=== PATIENT | male | born 1965 | race Caucasian/White ===

== ENCOUNTER 2023-02-01 16:46 | Inpatient (IN) | payer BC ==
[2023-02-01 23:06] VITALS: BMI 49.0
[2023-02-01] MEDS ORDERED: Acetaminophen 650 MG Suppository PR PRN (23:53)
[2023-02-01] MEDS ORDERED: Bisacodyl 5 MG TAB PO PRN (23:53)
[2023-02-01] MEDS ORDERED: Ondansetron ODT 4 MG TAB PO PRN (23:53)
[2023-02-01] MEDS ORDERED: Ondansetron PF 4 MG/2 ML Vial IVP PRN (23:53)
[2023-02-01] MEDS ORDERED: Senokot S 8.6-50 MG TAB PO PRN (23:53)
[2023-02-02] MEDS: Doxepin HCl 10 MG CAP PO PRN ×2 (00:50→21:31)
[2023-02-02] MEDS ORDERED: Doxepin HCl 25 MG CAP PO SCH (01:00)
[2023-02-02] MEDS ORDERED: Acetaminophen 500 MG TAB PO SCH (01:00)
[2023-02-02] MEDS ORDERED: Labetalol HCl 100 MG/20 ML VIAL SLOW IVP PRN (01:05)
[2023-02-02] MEDS ORDERED: Calcium Carbonate 500 MG ChewTAB PO PRN (01:05)
[2023-02-02] MEDS ORDERED: Sodium Chloride 0.65% Nasal 44 ML BOT EA NARE PRN (01:05)
[2023-02-02] MEDS ORDERED: Lorazepam 1 MG TAB PO PRN (01:05)
[2023-02-02] MEDS ORDERED: Loratadine 10 MG TAB PO PRN (01:05)
[2023-02-02] MEDS ORDERED: diphenhydrAMINE 25 MG CAP PO PRN (01:05)
[2023-02-02] MEDS ORDERED: Artificial Tear Sol 15 ML BOT EA EYE PRN (01:05)
[2023-02-02] MEDS ORDERED: hydrALAZINE 20 MG/ML VIAL SLOW IVP PRN (01:05)
[2023-02-02] MEDS ORDERED: Benzocaine/Menthol 1 LOZ LOZ PO PRN (01:05)
[2023-02-02] MEDS ORDERED: Moisturizing Cream (Eucerin) 113 GM JAR TOP PRN (01:05)
[2023-02-02] MEDS ORDERED: Lactated Ringer's 1,000 ML IV SCH (01:15)
[2023-02-02] MEDS ORDERED: Electrolyte Replacement Protocol 1 EACH FS PRN (01:15)
[2023-02-02] MEDS: Oseltamivir 75 MG CAP PO SCH ×2 (01:55→13:27)
[2023-02-02] MEDS: Thiamine HCl 200 MG/2 ML VIAL SLOW IVP SCH (01:55)
[2023-02-02] MEDS: Benzonatate 100 MG CAP PO PRN (01:56)
[2023-02-02 05:05] LABS: Anion Gap 14 mmol/L (10-20); BUN (Urea Nitrogen) 19 mg/dL (8.4-25.7); Calc. Creatinine Clearance 118 mL/min (70-130); Calcium 8.5 mg/dL (7.8-10.44); Carbon Dioxide 27 mmol/L (22-29); Chloride 100 mmol/L (98-107); Estimated GFR 60; Glucose 85 mg/dL (70-105); Magnesium 2.4 mg/dL (1.6-2.6); Potassium 4.2 mmol/L (3.5-5.1); Sodium 137 mmol/L (136-145)
[2023-02-02 05:07] LABS: Hematocrit 41.4 % (38.8-50.0); Mean Corpuscular HGB CONC 33.8 g/dL (32.0-36.0); Mean Corpuscular Hemoglobin 32.8 pg (27.0-33.0); Mean Platelet Volume 10.5 fl (7.4-10.4); Platelet Count 315 10x3/uL (150-450); Red Blood Cell (RBC) Count 4.27 10x6/uL (4.32-5.72); White Blood Cell (WBC) Count 5.5 10x3/uL (3.5-10.5)
[2023-02-02 05:09] LABS: MDiff Complete? YES
[2023-02-02 05:17] LABS: Phosphorus 4.2 mg/dL (2.3-4.7)
[2023-02-02 06:55] LABS: Band 5 % (5-11); Lymphocytes 24 % (21-51); Monocytes 15 % (0-10); Neutrophil 56 % (42-75)
[2023-02-02 06:57] LABS: Platelet Adequacy Comment Platelets Normal; Poikilocytosis SLIGHT = 6-15 cells (100X) (0-5/hpf); Target Cells SLIGHT = 2-5 cells (100X) (0-1/hpf)
[2023-02-02] MEDS: Folic Acid 1 MG TAB PO SCH (08:33)
[2023-02-02] MEDS: PARoxetine 20 MG TAB PO SCH (08:33)
[2023-02-02] MEDS: Lisinopril 5 MG TAB PO SCH (08:33)
[2023-02-02] MEDS: Nicotine 7 MG PATCH TD SCH (08:33)
[2023-02-02] MEDS: Famotidine 20 MG TAB PO SCH ×2 (08:33→21:08)
[2023-02-02] MEDS: Tamsulosin HCl 0.4 MG CAP PO SCH (08:34)
[2023-02-02] MEDS: Multivit, Therapeutic 1 TAB PO SCH (08:34)
[2023-02-02] MEDS: Ipratropium/Albuterol 3 ML NEB NEB PRN ×2 (09:00→17:15)
[2023-02-02] MEDS: GUAIFENESIN SF SOLN 200 MG/10 ML UDCUP PO PRN ×2 (09:15→21:10)
[2023-02-02] MEDS: Amlodipine 10 MG TAB PO SCH (11:00)
[2023-02-02] MEDS: Acetaminophen 325 MG TAB PO PRN ×2 (11:01→21:09)
[2023-02-02] MEDS: Famotidine/PF 20 mg/2ml Vial SLOW IVP SCH ×2 (11:03→21:09)
[2023-02-02] MEDS ORDERED: Metoprolol Tartrate 25 MG TAB PO SCH (14:00)
[2023-02-02] MEDS: Furosemide 20 MG (2 mL) VIAL SLOW IVP SCH (14:31)
[2023-02-02] MEDS ORDERED: Apixaban 5 MG TAB PO SCH (17:30)
[2023-02-02] MEDS: Metoprolol Tartrate 25 MG TAB PO SCH (21:09)
[2023-02-03] MEDS ORDERED: Lorazepam 1 MG TAB PO PRN (01:06)
[2023-02-03] MEDS: Oseltamivir 75 MG CAP PO SCH ×2 (02:15→13:16)
[2023-02-03] MEDS: Thiamine HCl 200 MG/2 ML VIAL SLOW IVP SCH (02:15)
[2023-02-03] MEDS: Furosemide 20 MG (2 mL) VIAL SLOW IVP SCH (06:26)
[2023-02-03] MEDS: Nicotine 7 MG PATCH TD SCH (10:13)
[2023-02-03] MEDS: Apixaban 5 MG TAB PO SCH ×2 (10:13→20:20)
[2023-02-03] MEDS: Amlodipine 10 MG TAB PO SCH (10:14)
[2023-02-03] MEDS: Lisinopril 5 MG TAB PO SCH (10:14)
[2023-02-03] MEDS: Multivit, Therapeutic 1 TAB PO SCH (10:14)
[2023-02-03] MEDS: Famotidine 20 MG TAB PO SCH ×2 (10:14→20:19)
[2023-02-03] MEDS: Tamsulosin HCl 0.4 MG CAP PO SCH (10:16)
[2023-02-03] MEDS: PARoxetine 20 MG TAB PO SCH (10:16)
[2023-02-03] MEDS: Folic Acid 1 MG TAB PO SCH (10:17)
[2023-02-03] MEDS: Famotidine/PF 20 mg/2ml Vial SLOW IVP SCH ×2 (10:17→20:19)
[2023-02-03] MEDS: Metoprolol Tartrate 25 MG TAB PO SCH (11:13)
[2023-02-03] MEDS ORDERED: Flecainide 50 MG TAB PO SCH (12:00)
[2023-02-03] MEDS: Ipratropium/Albuterol 3 ML NEB NEB PRN (15:05)
[2023-02-03] MEDS: Acetaminophen 325 MG TAB PO PRN ×2 (17:22→21:34)
[2023-02-03] MEDS ORDERED: Ibuprofen 200 MG TAB PO SCH (20:00)
[2023-02-03] MEDS: Doxepin HCl 10 MG CAP PO PRN (20:19)
[2023-02-03] MEDS: Flecainide 50 MG TAB PO SCH (20:19)
[2023-02-03] MEDS: Benzonatate 100 MG CAP PO PRN (21:34)
[2023-02-04] MEDS ORDERED: Lorazepam 1 MG TAB PO PRN (01:06)
[2023-02-04] MEDS: Thiamine HCl 200 MG/2 ML VIAL SLOW IVP SCH (01:16)
[2023-02-04] MEDS: Oseltamivir 75 MG CAP PO SCH ×2 (01:16→13:45)
[2023-02-04] MEDS: Acetaminophen 325 MG TAB PO PRN ×2 (10:18→16:51)
[2023-02-04] MEDS: Benzonatate 100 MG CAP PO PRN (10:19)
[2023-02-04] MEDS: Multivit, Therapeutic 1 TAB PO SCH (10:19)
[2023-02-04] MEDS: Flecainide 50 MG TAB PO SCH ×2 (10:19→21:05)
[2023-02-04] MEDS: Lisinopril 5 MG TAB PO SCH (10:19)
[2023-02-04] MEDS: Apixaban 5 MG TAB PO SCH ×2 (10:19→21:05)
[2023-02-04] MEDS: Folic Acid 1 MG TAB PO SCH (10:19)
[2023-02-04] MEDS: Tamsulosin HCl 0.4 MG CAP PO SCH (10:20)
[2023-02-04] MEDS: Famotidine 20 MG TAB PO SCH ×2 (10:20→21:05)
[2023-02-04] MEDS: Amlodipine 10 MG TAB PO SCH (10:20)
[2023-02-04] MEDS: PARoxetine 20 MG TAB PO SCH (10:20)
[2023-02-04] MEDS: Famotidine/PF 20 mg/2ml Vial SLOW IVP SCH ×3 (10:21→21:06)
[2023-02-04] MEDS: Nicotine 7 MG PATCH TD SCH (10:21)
[2023-02-04] MEDS ORDERED: methylPREDNISolone Sod Succ 40 MG VIAL IVP SCH (12:30)
[2023-02-04] MEDS: Ipratropium/Albuterol 3 ML NEB NEB SCH ×2 (13:50→19:00)
[2023-02-04] MEDS: cefTRIAXone\\ROCEPHIN 1 GM in Sodium Chloride 0.9% 100 ML IVPB SCH (16:52)
[2023-02-04 17:02] LABS: Hematocrit 46.4 % (38.8-50.0); Hemoglobin 16.1 g/dL (13.5-17.5); Mean Corpuscular HGB CONC 34.7 g/dL (32.0-36.0); Mean Corpuscular Hemoglobin 33.2 pg (27.0-33.0); Mean Corpuscular Volume 95.7 fl (81.2-95.1); Mean Platelet Volume 10.6 fl (7.4-10.4); Platelet Count 299 10x3/uL (150-450); RBC Distribution Width 14.6 % (11.5-14.5); Red Blood Cell (RBC) Count 4.85 10x6/uL (4.32-5.72); White Blood Cell (WBC) Count 18.3 10x3/uL (3.5-10.5)
[2023-02-04] MEDS: Azithromycin 500 MG in Sodium Chloride 0.9% 250 ML 250 ML IVPB SCH (17:06)
[2023-02-04 17:12] LABS: Anion Gap 15 mmol/L (10-20); BUN (Urea Nitrogen) 21 mg/dL (8.4-25.7); Calc. Creatinine Clearance 114 mL/min (70-130); Calcium 8.9 mg/dL (7.8-10.44); Carbon Dioxide 25 mmol/L (22-29); Chloride 96 mmol/L (98-107); Estimated GFR 58; Glucose 137 mg/dL (70-105); Magnesium 1.8 mg/dL (1.6-2.6); Potassium 4.3 mmol/L (3.5-5.1); Sodium 132 mmol/L (136-145)
[2023-02-04] MEDS ORDERED: Magnesium 2 GM/50 ML(in water) 2 GM in Premix 1 BAG IVPB SCH (17:15)
[2023-02-04 17:29] LABS: Band 32 % (5-11); Lymphocytes 1 % (21-51); Monocytes 4 % (0-10)
[2023-02-04 17:33] LABS: Neutrophil 63 % (42-75); RBC Morph Comment Within Normal Limits
[2023-02-04 17:34] LABS: Dohle Bodies SLIGHT; Platelet Adequacy Comment Appears Adequate; Vacuoles SLIGHT
[2023-02-04 17:35] LABS: MDiff Complete? YES
[2023-02-04] MEDS: Doxepin HCl 10 MG CAP PO PRN (21:05)
[2023-02-05] MEDS: Ipratropium/Albuterol 3 ML NEB NEB SCH ×4 (00:07→19:49)
[2023-02-05] MEDS: Oseltamivir 75 MG CAP PO SCH ×2 (00:08→13:19)
[2023-02-05] MEDS: Thiamine 100 MG TAB PO SCH (00:30)
[2023-02-05] MEDS ORDERED: Lorazepam 0.5 MG TAB PO PRN (01:06)
[2023-02-05 05:22] LABS: #Monocytes 1.4 10x3/uL (0.0-1.1); #Neutrophils 19.8 10x3/uL (1.5-8.4); %Basophils 0.2 % (0.0-2.0); %Eosinophils 0.1 % (0.0-6.0); %Monocytes 6.2 % (0.0-10.0); Hemoglobin 15.5 g/dL (13.5-17.5); Mean Corpuscular HGB CONC 33.7 g/dL (32.0-36.0); Mean Corpuscular Hemoglobin 32.6 pg (27.0-33.0); Mean Corpuscular Volume 96.6 fl (81.2-95.1); Mean Platelet Volume 10.7 fl (7.4-10.4); Platelet Count 299 10x3/uL (150-450); RBC Distribution Width 14.6 % (11.5-14.5); Red Blood Cell (RBC) Count 4.76 10x6/uL (4.32-5.72)
[2023-02-05 05:44] LABS: Anion Gap 16 mmol/L (10-20); BUN (Urea Nitrogen) 26 mg/dL (8.4-25.7); Calc. Creatinine Clearance 97 mL/min (70-130); Calcium 9.1 mg/dL (7.8-10.44); Carbon Dioxide 25 mmol/L (22-29); Chloride 99 mmol/L (98-107); Estimated GFR 48; Glucose 161 mg/dL (70-105); Magnesium 2.9 mg/dL (1.6-2.6); Potassium 4.7 mmol/L (3.5-5.1); Sodium 135 mmol/L (136-145)
[2023-02-05] MEDS: Apixaban 5 MG TAB PO SCH ×2 (09:56→20:48)
[2023-02-05] MEDS: Flecainide 50 MG TAB PO SCH ×2 (09:56→20:48)
[2023-02-05] MEDS: PARoxetine 20 MG TAB PO SCH (09:56)
[2023-02-05] MEDS: Multivit, Therapeutic 1 TAB PO SCH (09:56)
[2023-02-05] MEDS: Folic Acid 1 MG TAB PO SCH (09:56)
[2023-02-05] MEDS: Lisinopril 5 MG TAB PO SCH (09:56)
[2023-02-05] MEDS: Tamsulosin HCl 0.4 MG CAP PO SCH (09:56)
[2023-02-05] MEDS: Famotidine 20 MG TAB PO SCH ×2 (09:57→20:48)
[2023-02-05] MEDS: methylPREDNISolone Sod Succ 40 MG VIAL IVP SCH (09:57)
[2023-02-05] MEDS: Famotidine/PF 20 mg/2ml Vial SLOW IVP SCH (09:57)
[2023-02-05] MEDS: Nicotine 7 MG PATCH TD SCH (10:37)
[2023-02-05] MEDS ORDERED: Famotidine/PF 20 mg/2ml Vial SLOW IVP PRN (16:15)
[2023-02-05] MEDS: Azithromycin 500 MG in Sodium Chloride 0.9% 250 ML 250 ML IVPB SCH (17:40)
[2023-02-05] MEDS: cefTRIAXone\\ROCEPHIN 1 GM in Sodium Chloride 0.9% 100 ML IVPB SCH (17:40)
[2023-02-05] MEDS: Acetaminophen 325 MG TAB PO PRN (20:48)
[2023-02-05] MEDS: GUAIFENESIN SF SOLN 200 MG/10 ML UDCUP PO PRN (20:48)
[2023-02-05] MEDS: Doxepin HCl 10 MG CAP PO PRN (20:48)
[2023-02-06] MEDS: Ipratropium/Albuterol 3 ML NEB NEB SCH ×2 (00:02→07:48)
[2023-02-06] MEDS: Thiamine 100 MG TAB PO SCH (00:30)
[2023-02-06] MEDS: Oseltamivir 75 MG CAP PO SCH (00:31)
[2023-02-06 05:51] LABS: #Monocytes 1.2 10x3/uL (0.0-1.1); #Neutrophils 21.1 10x3/uL (1.5-8.4); %Basophils 0.1 % (0.0-2.0); %Eosinophils 0.2 % (0.0-6.0); %Monocytes 5.1 % (0.0-10.0); %Neutrophils 91.1 % (40.0-75.0); Hematocrit 41.8 % (38.8-50.0); Hemoglobin 14.7 g/dL (13.5-17.5); Mean Corpuscular HGB CONC 35.2 g/dL (32.0-36.0); Mean Corpuscular Hemoglobin 33.9 pg (27.0-33.0); Mean Corpuscular Volume 96.5 fl (81.2-95.1); Mean Platelet Volume 10.9 fl (7.4-10.4); Platelet Count 279 10x3/uL (150-450); RBC Distribution Width 14.7 % (11.5-14.5); Red Blood Cell (RBC) Count 4.33 10x6/uL (4.32-5.72); White Blood Cell (WBC) Count 23.1 10x3/uL (3.5-10.5)
[2023-02-06 05:59] LABS: Anion Gap 14 mmol/L (10-20); BUN (Urea Nitrogen) 33 mg/dL (8.4-25.7); Calc. Creatinine Clearance 135 mL/min (70-130); Calcium 8.4 mg/dL (7.8-10.44); Carbon Dioxide 26 mmol/L (22-29); Chloride 103 mmol/L (98-107); Estimated GFR 71; Glucose 141 mg/dL (70-105); Sodium 139 mmol/L (136-145)
[2023-02-06 08:58] VITALS: BP 125/64; TEMP 97.9
[2023-02-06] MEDS: Flecainide 50 MG TAB PO SCH (09:20)
[2023-02-06] MEDS: Multivit, Therapeutic 1 TAB PO SCH (09:20)
[2023-02-06] MEDS: methylPREDNISolone Sod Succ 40 MG VIAL IVP SCH (09:20)
[2023-02-06] MEDS: Apixaban 5 MG TAB PO SCH (09:20)
[2023-02-06] MEDS: Famotidine 20 MG TAB PO SCH (09:20)
[2023-02-06] MEDS: PARoxetine 20 MG TAB PO SCH (09:20)
[2023-02-06] MEDS: Tamsulosin HCl 0.4 MG CAP PO SCH (09:20)
[2023-02-06] MEDS: Folic Acid 1 MG TAB PO SCH (09:20)
[2023-02-06] MEDS: Nicotine 7 MG PATCH TD SCH (09:21)
== END 2023-02-06 11:17 | disposition home or self-care (01) | DRG 193 ==
LOC: CSHTELE 21:36
PROVIDERS: ADMIT Emergency Medicine; ATTEND Family Medicine
DX: J10.1 Influenza due to other identified influenza virus with other respiratory manifestations (principal); I50.31 Acute diastolic (congestive) heart failure; J96.01 Acute respiratory failure with hypoxia; I13.0 Hypertensive heart and chronic kidney disease with heart failure and stage 1 through stage 4 chronic kidney disease, or unspecified chronic kidney disease; Z68.42 Body mass index [BMI] 45.0-49.9, adult; N17.9 Acute kidney failure, unspecified; I44.60 Unspecified fascicular block; I48.91 Unspecified atrial fibrillation; E66.01 Morbid (severe) obesity due to excess calories; N18.9 Chronic kidney disease, unspecified; F32.A Depression, unspecified; K21.9 Gastro-esophageal reflux disease without esophagitis; N40.0 Benign prostatic hyperplasia without lower urinary tract symptoms; Z79.899 Other long term (current) drug therapy; Z87.891 Personal history of nicotine dependence; Z98.890 Other specified postprocedural states; Z90.49 Acquired absence of other specified parts of digestive tract; Z83.3 Family history of diabetes mellitus
CPT/HCPCS: 36415; 36416; 71045; 80048; 83735; 84100; 85025; 87040; 87149; 93005; 93010; 93306; 94640; J0456; J0696; J1940; J2920; J3411; J3475; J3490; J7050; J7120; J7620; S0028